=== PATIENT | female | born 1990 | race Caucasian/White ===

== ENCOUNTER → 2017-11-22 | Outpatient (REF) | payer MEDICAID | LOC: M SFHCLERA 17:08 | DX: R53.81 Other malaise (principal) ==

== ENCOUNTER 2023-03-24 17:30 | Outpatient (CLI) | payer MEDICAID ==
[~2023-03-24] VITALS: Ht 160 cm; Wt 91.0 kg
[2023-03-24] MEDS ORDERED: PRENTAB9 PO (18:07)
[2023-03-24] MEDS ORDERED: ACET-897 PO (18:07)
[2023-03-24 18:08] VITALS: BP 144/84
[2023-03-24] MEDS ORDERED: HOME MED LIST COMPLETE! XX SCH (18:10)
[2023-03-24 18:25] VITALS: BP 155/91
[2023-03-24 18:39] VITALS: BP 146/82
[2023-03-24 18:54] VITALS: BP 136/80
[2023-03-24] MEDS ORDERED: BETAMETHASONE SOLUSPAN 6MG/ML 5ML VIAL IM ONE (18:55)
[2023-03-24] MEDS ORDERED: FIORICET TAB PO ONE (18:55)
[2023-03-24 19:14] VITALS: BP 142/83
[2023-03-24 19:24] LABS: HEMATOCRIT 27.9 % (36.0-47.0); HEMOGLOBIN 8.9 g/dl (12.0-15.5); MEAN CORPUSCULAR HEMOGLOBIN 26.6 pg (27.0-33.0); MEAN CORPUSCULAR HGB CONC 31.9 g/dl (32.0-36.5); MEAN CORPUSCULAR VOLUME 83.3 fl (80.0-96.0); PLATELET COUNT, AUTOMATED 150 10^3/uL (150-450); RED BLOOD COUNT 3.35 10^6/uL (4.00-5.40); WHITE BLOOD COUNT 7.1 10^3/uL (4.0-10.0)
[2023-03-24 19:39] LABS: TOTAL PROTEIN,RANDOM URINE 34.7 MG/DL (0.0-14.0)
[2023-03-24 19:42] LABS: URIC ACID 9.3 MG/DL (3.1-7.8)
[2023-03-24 19:43] LABS: LDH LACTATE DEHYDROGENASE 150 U/L (120-246)
[2023-03-24 19:44] LABS: ALT/SGPT 15 U/L (7.0-40); AST/SGOT 18 U/L (<34); BILIRUBIN,TOTAL 0.4 MG/DL (0.3-1.2); CREATININE FOR GFR 0.58 MG/DL (0.55-1.30); GLOMERULAR FILTRATION RATE > 60.0 (>60)
[2023-03-24 19:44] LABS: CREATININE,RANDOM URINE 41.5 MG/DL
== END 2023-03-24 20:25 | disposition home or self-care (01) ==
LOC: M LDO 17:30
PROVIDERS: ATTEND Obstetrics & Gynecology
DX: O36.8130 Decreased fetal movements, third trimester, not applicable or unspecified (principal); O14.03 Mild to moderate pre-eclampsia, third trimester; Z3A.35 35 weeks gestation of pregnancy
CPT/HCPCS: 36415; 59025; 76815; 76819; 76820; 82247; 82565; 82570; 83615; 84156; 84450; 84460; 84550; 85027; 96372; G0463; J0702

== ENCOUNTER 2023-03-25 19:23 | Outpatient (CLI) | payer MEDICAID ==
[~2023-03-25] VITALS: Ht 160 cm; Wt 91.3 kg
[~2023-03-25 19:23] MED LIST: ACET-897 PO; PRENTAB9 PO
[2023-03-25] MEDS ORDERED: BETAMETHASONE SOLUSPAN 6MG/ML 5ML VIAL IM ONE (19:40)
[2023-03-25 19:45] VITALS: BP 136/96
[2023-03-25 20:11] VITALS: BP 144/98
== END 2023-03-25 20:18 | disposition home or self-care (01) ==
LOC: M LDO 19:23
PROVIDERS: ATTEND Obstetrics & Gynecology
DX: O14.93 Unspecified pre-eclampsia, third trimester (principal); Z3A.35 35 weeks gestation of pregnancy
CPT/HCPCS: 59025; 96372; G0463; J0702

== ENCOUNTER 2023-03-28 12:40 | Inpatient (IN) | payer MEDICAID ==
[~2023-03-28] VITALS: Ht 160 cm; Wt 104.0 kg
[2023-03-28] VITALS (55 sets, daily range): BP systolic 102–198; BP diastolic 56–125; TEMP 98; O2SAT 95–97
[~2023-03-28 12:40] MED LIST changes: +LABETALOL 200 MG TAB PO SCH
[2023-03-28] MEDS ORDERED: HOME MED LIST COMPLETE! XX SCH (13:15)
[2023-03-28] MEDS ORDERED: PENICILLIN G POTASSIUM 5 MU IV 5 MU in D5W MINI-BAG PLUS 100 ML IV STA (14:04)
[2023-03-28] MEDS ORDERED: TRANEXAMIC ACID INJection 1,000 MG in NS 100 ML IV PRN (14:05)
[2023-03-28] MEDS ORDERED: hydrALAZINE 20MG/ML 1ML VIAL IV ONE ×2 (14:05→16:00)
[2023-03-28] MEDS ORDERED: miSOPROStol 50MCG 1/2 TABLET PO SCH (14:05)
[2023-03-28] MEDS ORDERED: CARBOPROST TROMETHAMINE 250 MCG/ML AMP IM PRN (14:05)
[2023-03-28] MEDS ORDERED: OXYTOCIN DRIP 30 UNITS in IV 1 EA IV PRN ×4 (14:05)
[2023-03-28] MEDS ORDERED: CALCIUM GLUCONATE 1,000 MG in D5W MINI-BAG PLUS 100 ML IV PRN (14:05)
[2023-03-28] MEDS ORDERED: OXYTOCIN INJ 10UNITS/ML 1ML VIAL IM PRN (14:05)
[2023-03-28] MEDS ORDERED: LIDOCAINE 1% MDV 20ML VIAL INFIL PRN (14:05)
[2023-03-28] MEDS ORDERED: FIORICET TAB PO ONE (14:30)
[2023-03-28] MEDS: LR 1,000 ML IV SCH (14:46)
[2023-03-28] MEDS: MAG Sulf (OBGYN) 20GM/500ML 20,000 MG in IV 1 EA IV SCH (14:47)
[2023-03-28 14:57] LABS: HEMATOCRIT 31.3 % (36.0-47.0); HEMOGLOBIN 9.9 g/dl (12.0-15.5); MEAN CORPUSCULAR HEMOGLOBIN 26.5 pg (27.0-33.0); MEAN CORPUSCULAR HGB CONC 31.6 g/dl (32.0-36.5); MEAN CORPUSCULAR VOLUME 83.9 fl (80.0-96.0); PLATELET COUNT, AUTOMATED 177 10^3/uL (150-450); RED BLOOD COUNT 3.73 10^6/uL (4.00-5.40); WHITE BLOOD COUNT 8.9 10^3/uL (4.0-10.0)
[2023-03-28] MEDS: LABETALOL 200 MG TAB PO SCH ×2 (15:05→21:00)
[2023-03-28 15:27] LABS: URIC ACID 8.7 MG/DL (3.1-7.8)
[2023-03-28 15:29] LABS: LDH LACTATE DEHYDROGENASE 209 U/L (120-246)
[2023-03-28 15:30] LABS: ALT/SGPT 19 U/L (7.0-40); AST/SGOT 25 U/L (<34); BILIRUBIN,TOTAL 0.5 MG/DL (0.3-1.2); GLOMERULAR FILTRATION RATE > 60.0 (>60)
[2023-03-28] MEDS ORDERED: LABETALOL 100MG/20ML VIAL IV STA ×4 (16:29→18:35)
[2023-03-28] MEDS ORDERED: PEN G POT 3,000,000 UNIT/50 ML 3,000,000 UNIT in IV 1 EA IV SCH (18:05)
[2023-03-28 18:09] LABS: TOTAL PROTEIN,RANDOM URINE 8.4 MG/DL (0.0-14.0)
[2023-03-28 18:14] LABS: CREATININE,RANDOM URINE 16.3 MG/DL
[2023-03-28] MEDS ORDERED: NIFEdipine 30MG XL TAB PO STA (19:20)
[2023-03-28] MEDS ORDERED: AZITHROMYCIN INJ 500 MG, VIAL MATE ADAPTER 1 EACH in NS 250 ML IV ONE (19:40)
[2023-03-28] MEDS ORDERED: BICITRA 30ML SOLN UDC PO ONE (19:40)
[2023-03-28] MEDS ORDERED: ceFAZolin SOD 2 GM in IV 1 EA IV ONE (19:40)
[2023-03-28] MEDS ORDERED: KETOROLAC 60MG 2ML VIAL As Ordered ONE (19:51)
[2023-03-28] MEDS ORDERED: MORPHINE PRES-FREE INJ 10 MG/10 ML VIAL As Ordered ONE (19:51)
[2023-03-28] MEDS ORDERED: OXYTOCIN INJ 10UNITS/ML 1ML VIAL As Ordered ONE ×2 (19:51→20:48)
[2023-03-28] MEDS ORDERED: LIDOCAINE 2% INJ 100 MG/5 ML SYRINGE As Ordered ONE ×3 (19:51→21:03)
[2023-03-28] MEDS ORDERED: PHENYLephrine 500MCG 5ML (100MCG/ML) SYRINGE As Ordered ONE ×2 (20:51→21:03)
[2023-03-28] MEDS ORDERED: ONDANSETRON 4MG 2ML VIAL As Ordered ONE (20:51)
[2023-03-28] MEDS ORDERED: ePHEDrine SULFATE 25 MG/5 ML(5MG/ML) SYRINGE As Ordered ONE (20:58)
[2023-03-28] MEDS ORDERED: OXYTOCIN DRIP 30 UNITS in IV 1 EA IV SCH (21:30)
[2023-03-28] MEDS ORDERED: SIMETHICONE 80MG CHEW TAB PO PRN (21:30)
[2023-03-28] MEDS ORDERED: MOM 30ML SUSPENSION UDC PO PRN (21:30)
[2023-03-28] MEDS ORDERED: ONDANSETRON 4MG 2ML VIAL IV PRN (21:30)
[2023-03-28] MEDS ORDERED: RHOGAM 300MCG (1500IU) INJ IM SCH (21:30)
[2023-03-28] MEDS ORDERED: oxyCODONE 5MG TAB PO PRN (21:30)
[2023-03-28] MEDS ORDERED: OXYTOCIN 30UNITS IN 0.9% NaCl 500ML IV BAG As Ordered ONE (21:52)
[2023-03-28] MEDS: ACETAMINOPHEN 500 MG TAB PO SCH (23:07)
[2023-03-29] VITALS (38 sets, daily range): BP systolic 104–143; BP diastolic 68–94; TEMP 96.7–97.6; O2SAT 96–97
[2023-03-29] MEDS ORDERED: METOCLOPRAMIDE INJ 10MG/2ML VIAL IV PRN
[2023-03-29] MEDS ORDERED: MEPERIDINE 25 MG/ML 1ML VIAL IV PRN
[2023-03-29] MEDS ORDERED: diphenhydrAMINE 50MG/ML VIAL IV PRN
[2023-03-29] MEDS ORDERED: NALBUPHINE HCL 10 MG/ML 1ML AMP IV PRN
[2023-03-29] MEDS ORDERED: **NOTE PATIENT COMMENT** MISC XX SCH
[2023-03-29] MEDS ORDERED: MORPHINE 2 MG/ML 1ML VIAL IV PRN
[2023-03-29] MEDS ORDERED: ONDANSETRON 4MG 2ML VIAL IV PRN
[2023-03-29] MEDS ORDERED: LR 1,000 ML IV SCH ×2
[2023-03-29] MEDS ORDERED: BICITRA 30ML SOLN UDC PO ONE
[2023-03-29] MEDS ORDERED: NALOXONE INJ 0.4MG/1ML VIAL IV PRN ×2
[2023-03-29] MEDS: MAG Sulf (OBGYN) 20GM/500ML 20,000 MG in IV 1 EA IV SCH ×2 (02:09→10:45)
[2023-03-29] MEDS: KETOROLAC 30 MG/ML 1ML VIAL IV SCH ×3 (03:00→15:20)
[2023-03-29] MEDS: LR 1,000 ML IV SCH ×2 (03:25→15:22)
[2023-03-29 06:12] LABS: HEMATOCRIT 24.9 % (36.0-47.0); MEAN CORPUSCULAR HEMOGLOBIN 25.9 pg (27.0-33.0); MEAN CORPUSCULAR HGB CONC 30.9 g/dl (32.0-36.5); MEAN CORPUSCULAR VOLUME 83.8 fl (80.0-96.0); PLATELET COUNT, AUTOMATED 147 10^3/uL (150-450); RED BLOOD COUNT 2.97 10^6/uL (4.00-5.40); WHITE BLOOD COUNT 8.8 10^3/uL (4.0-10.0)
[2023-03-29 06:27] LABS: HEMOGLOBIN 7.7 g/dl (12.0-15.5)
[2023-03-29] MEDS ORDERED: diphenhydrAMINE 50MG CAP PO ONE (06:35)
[2023-03-29] MEDS: ACETAMINOPHEN 500 MG TAB PO SCH ×3 (07:00→17:34)
[2023-03-29] MEDS ORDERED: COLA100C5 PO (08:40)
[2023-03-29] MEDS ORDERED: OXYC-517 PO (08:40)
[2023-03-29] MEDS ORDERED: ACET-683 PO (08:40)
[2023-03-29] MEDS ORDERED: ENOXAPARIN 30MG/0.3ML SYRINGE (J1650 PER 10MG) SC SCH (09:00)
[2023-03-29] MEDS: DOCUSATE SODIUM 100MG CAPSULE PO SCH ×2 (09:33→20:52)
[2023-03-29] MEDS: PRENATAL VITAMINS CHEWABLE TABLET PO SCH (09:33)
[2023-03-29] MEDS: LABETALOL 200 MG TAB PO SCH ×2 (09:34→20:53)
[2023-03-29] MEDS: SLF 3 ML SYR IV SCH ×3 (09:40→15:21)
[2023-03-29] MEDS: ENOXAPARIN 30MG/0.3ML SYRINGE (J1650 PER 10MG) SC SCH ×2 (09:52→22:27)
[2023-03-29] MEDS: INSULIN LISPRO (NovoLOG) PER UNIT SC SCH ×2 (12:00→17:30)
[2023-03-29] MEDS ORDERED: ceFAZolin SOD 2 GM in IV 1 EA IV ONE (12:00)
[2023-03-29] MEDS ORDERED: GLUCAGON INJ 1MG VIAL SC PRN (13:15)
[2023-03-29] MEDS ORDERED: GLUCOSE 4GM CHEW TABLET PO PRN (13:15)
[2023-03-29] MEDS ORDERED: DEXTROSE 50% 50ML SYRINGE IV PRN (13:15)
[2023-03-29] MEDS: IBUPROFEN 600MG TAB PO SCH (22:30)
[2023-03-29] MEDS ORDERED: IBUPROFEN 800 MG TAB PO SCH (23:00)
[2023-03-30] VITALS (7 sets, daily range): BP systolic 124–142; BP diastolic 81–90; TEMP 97; O2SAT 96–98
[2023-03-30] MEDS: ACETAMINOPHEN 500 MG TAB PO SCH ×4 (00:41→18:10)
[2023-03-30] MEDS: IBUPROFEN 600MG TAB PO SCH ×4 (05:35→22:28)
[2023-03-30] MEDS: INSULIN LISPRO (NovoLOG) PER UNIT SC SCH (07:26)
[2023-03-30] MEDS: LABETALOL 200 MG TAB PO SCH ×2 (08:07→21:42)
[2023-03-30] MEDS: DOCUSATE SODIUM 100MG CAPSULE PO SCH ×2 (08:07→21:41)
[2023-03-30] MEDS: PRENATAL VITAMINS CHEWABLE TABLET PO SCH (08:08)
[2023-03-30] MEDS: ENOXAPARIN 30MG/0.3ML SYRINGE (J1650 PER 10MG) SC SCH ×2 (08:52→21:43)
[2023-03-30] MEDS ORDERED: MEASLES,MUMPS,RUBELLA VACCINE INJ (MMR-II) SC.IMMUN ONE (09:00)
[2023-03-30 09:26] LABS: HEMATOCRIT 29.3 % (36.0-47.0); HEMOGLOBIN 9.4 g/dl (12.0-15.5); MEAN CORPUSCULAR HEMOGLOBIN 26.9 pg (27.0-33.0); MEAN CORPUSCULAR HGB CONC 32.1 g/dl (32.0-36.5); PLATELET COUNT, AUTOMATED 180 10^3/uL (150-450); RED BLOOD COUNT 3.49 10^6/uL (4.00-5.40); WHITE BLOOD COUNT 8.6 10^3/uL (4.0-10.0)
[2023-03-30] MEDS ORDERED: BOOSTRIX VACCINE (TETANUS/DIPHTH/ACEL. PERTUSSIS) 0.5ML SYR IM.IMMUN ONE (12:00)
[2023-03-30] MEDS: oxyCODONE 5MG TAB PO PRN ×2 (16:10→22:30)
[2023-03-31 02:00] VITALS: BP 163/91; O2SAT 97
[2023-03-31] MEDS: IBUPROFEN 600MG TAB PO SCH ×2 (05:10→11:42)
[2023-03-31] MEDS: oxyCODONE 5MG TAB PO PRN (05:12)
[2023-03-31 06:00] VITALS: BP 141/91; O2SAT 97
[2023-03-31] MEDS: ACETAMINOPHEN 500 MG TAB PO SCH ×3 (06:00→11:40)
[2023-03-31] MEDS ORDERED: LABE200T5 PO (09:53)
[2023-03-31] MEDS: DOCUSATE SODIUM 100MG CAPSULE PO SCH (09:59)
[2023-03-31] MEDS: PRENATAL VITAMINS CHEWABLE TABLET PO SCH (09:59)
[2023-03-31 10:00] VITALS: BP_SYST 141; BP_SYST 152; BP_DIAS 79; BP_DIAS 91; O2SAT 97
[2023-03-31] MEDS: LABETALOL 200 MG TAB PO SCH (10:00)
[2023-03-31] MEDS: ENOXAPARIN 30MG/0.3ML SYRINGE (J1650 PER 10MG) SC SCH (10:01)
== END 2023-03-31 13:00 | disposition home or self-care (01) | DRG 540 ==
LOC: M LDO 12:40 → M LDI 13:49 → M OBS 03-29 22:20
PROVIDERS: ADMIT Advanced Practice Midwife; ATTEND Obstetrics & Gynecology
PROC: 0UB70ZZ Excision of Bilateral Fallopian Tubes, Open Approach (ICD-10-PCS; 2023-03-28)
PROC: 3E0P7GC Introduction of Other Therapeutic Substance into Female Reproductive, Via Natural or Artificial Opening (ICD-10-PCS; 2023-03-28)
PROC: 30233N1 Transfusion of Nonautologous Red Blood Cells into Peripheral Vein, Percutaneous Approach (ICD-10-PCS; 2023-03-28)
PROC: 10D00Z1 Extraction of Products of Conception, Low, Open Approach (ICD-10-PCS; principal; 2023-03-28 19:58)
DX: O14.14 Severe pre-eclampsia complicating childbirth (principal); O72.1 Other immediate postpartum hemorrhage; O99.214 Obesity complicating childbirth; E66.9 Obesity, unspecified; O99.814 Abnormal glucose complicating childbirth; Z88.1 Allergy status to other antibiotic agents; Z88.2 Allergy status to sulfonamides; Z91.040 Latex allergy status; Z3A.35 35 weeks gestation of pregnancy; Z37.0 Single live birth; Z30.2 Encounter for sterilization